=== PATIENT | male | born 1985 | race Caucasian/White ===

== ENCOUNTER 2017-01-19 15:32 | Emergency (ER) | payer OTHER ==
[~2017-01-19] VITALS: Ht 154.9 cm; Wt 56.7 kg
--- NOTE | 2017-01-19 16:00 | NUR ---
PT CAME IN WITH REPORT STATING THAT " MY HEART IS RACING" " BEEN AWAKE" AFTER COCAINE USE X 6 HRS AGO. VSS. NOTED 110'S HR. SEEN BY PA FOR EVAL. SAFETY AND COMFORT MEASURES PROVIDED. WILL MONITOR.
[2017-01-19] MEDS ORDERED: ASPIRIN 81 MG TAB.CHEW PO ONE (16:30)
[2017-01-19] MEDS ORDERED: LORAZEPAM 1 MG TABLET PO ONE ×2 (16:30→18:00)
[2017-01-19] MEDS ORDERED: LORAZEPAM 1 MG TABLET ONE ×2 (16:36→18:27)
[2017-01-19] MEDS ORDERED: ASPIRIN 81 MG TAB.CHEW ONE (16:36)
--- NOTE | 2017-01-19 16:45 | NUR ---
PT MEDICATED ORDERED.
[2017-01-19 17:06] LABS: BASOPHILS % (AUTO) 0.3 % (0.0-2.0); EOSINOPHILS # (AUTO) 0.1 /CMM (0.0-0.7); EOSINOPHILS % (AUTO) 0.9 % (0.0-6.0); HEMATOCRIT 47 % (39-51); HEMOGLOBIN 15.4 g/dL (13.5-17.5); LYMPHOCYTES # (AUTO) 1.1 /CMM (0.8-4.8); LYMPHOCYTES % (AUTO) 15.3 % (20.0-44.0); MEAN CORPUSCULAR HEMOGLOBIN 28 PG (26.0-33.0); MEAN CORPUSCULAR HGB CONC 33 g/dl (31.0-36.0); MEAN CORPUSCULAR VOLUME 86 fL (80-96); MONOCYTES # (AUTO) 0.3 /CMM (0.1-1.30); MONOCYTES % (AUTO) 4.3 % (2.0-12.0); NEUTROPHILS # (AUTO) 5.7 /CMM (1.8-8.9); NEUTROPHILS % (AUTO) 79.2 % (43.0-81.0); PLATELET COUNT (AUTO) 321 /CMM (150-450); RDW COEFFICIENT OF VARIATION 14.3 (11.5-15.0); RED BLOOD CELL COUNT(AUTO) 5.44 MIL/uL (4.5-6.0); WHITE BLOOD COUNT (AUTO) 7.3 K/uL (4.3-11.0)
[2017-01-19 17:52] LABS: CALCIUM, SERUM 9.6 mg/dL (8.5-10.1); CARBON DIOXIDE 27 mmol/L (21-32); CHLORIDE 99 mmol/L (98-107); CREATININE 0.9 mg/dL (0.6-1.3); GLUCOSE 91 mg/dL (74-106); POTASSIUM 3.7 mmol/L (3.5-5.1); SODIUM SERUM 137 mmol/L (136-145); UREA NITROGEN, BLOOD 9 mg/dL (7-18)
[2017-01-19 18:01] LABS: TROPONIN I < 0.017 ng/mL (0.00-0.056)
--- NOTE | 2017-01-19 19:00 | NUR ---
Patient discharged to home in stable condition. Written and verbal after care instructions given. Patient verbalizes understanding of instruction.
[2017-01-19 19:27] VITALS: BP 124/68
== END 2017-01-19 19:28 | disposition home or self-care (01) ==
LOC: ER 15:37
DX: F14.10 Cocaine abuse, uncomplicated (principal); R00.0 Tachycardia, unspecified; F41.9 Anxiety disorder, unspecified; F10.10 Alcohol abuse, uncomplicated; F12.10 Cannabis abuse, uncomplicated; F17.200 Nicotine dependence, unspecified, uncomplicated
CPT/HCPCS: 36415; 71010; 80048; 84484; 85025; 93005; 99285; A4606; Z7610